=== PATIENT | female | born 1935 | race Caucasian/White ===

== ENCOUNTER → 2018-02-24 | Outpatient (CLI) | payer MEDICARE, OTHER ==
[~2018-02-24] MED LIST: AMLO5 PO; Aspir-Low81 MG PO; CHONDROITIN SU100 GM MC; CONEST.9 PO; CYAN1000 PO; ERGO400 PO; FOLI1 PO; GLUC500 PO; L-Lysine500 M1 PO; LISHYD2025 PO; Mobic15 MG PO
[2018-02-24 11:47] LABS: BASOPHILS ABSOLUTE AUTO 0.05 K/mm3 (0.00-0.23); BASOPHILS PERCENT AUTO 1 % (0-2); EOSINOPHILS ABSOLUTE AUTO 0.06 K/mm3 (0.00-0.68); EOSINOPHILS PERCENT AUTO 1 % (0-6); Hematocrit 36.7 % (33.0-51.0); Hemoglobin 11.5 g/dL (11.5-16.0); IMMATURE GRAN ABSOLUTE AUTO 0.01 K/mm3 (0.00-0.10); IMMATURE GRAN PERCENT AUTO 0 % (0-1); LYMPHOCYTES ABSOLUTE AUTO 0.66 K/mm3 (0.84-5.20); LYMPHOCYTES PERCENT AUTO 14 % (21-46); MONOCYTES ABSOLUTE AUTO 0.56 K/mm3 (0.16-1.47); MONOCYTES PERCENT AUTO 12 % (4-13); Mean Corpuscular HGB Conc 31.3 g/dL (31.5-36.5); Mean Corpuscular Volume 90 fL (80-100); Mean Platelet Volume 10.7 fL (9.1-12.4); NEUTROPHILS ABSOLUTE AUTO 3.52 K/mm3 (1.96-9.15); NEUTROPHILS PERCENT AUTO 73 % (41-73); Platelet Count 224 K/mm3 (150-400); RDW Coefficient Variation 16.3 % (11.7-14.2); RDW Standard Deviation 53.3 fL (35.1-46.3); White Blood Cell Count 4.86 K/mm3 (4.00-11.30)
[2018-02-24 11:54] LABS: Anion Gap 8 mmol/L (6-16); Blood Urea Nitrogen 17 mg/dL (8-24); Bun/Creatinine Ratio 17.3 (12.0-20.0); CO2, Blood 29 mmol/L (21-32); Calcium, Blood 8.9 mg/dL (8.5-10.1); Chloride, Blood 104 mmol/L (98-108); Creatinine, Blood 0.98 mg/dL (0.40-1.00); Glomerular Filtration Rate 54 (60-); Glucose, Blood 112 mg/dL (70-99); Potassium, Blood 3.8 mmol/L (3.5-5.5); Sodium, Blood 141 mmol/L (136-145)
[2018-02-24 12:36] LABS: Troponin I <0.015 ng/mL (0.000-0.040)
== END ==
LOC: LAB EV 11:44 → LAB SHORT 11:44
PROVIDERS: Emergency Medicine
DX: R42 Dizziness and giddiness (principal); R07.0 Pain in throat
CPT/HCPCS: 80048; 84484; 85025; 87070

== ENCOUNTER → 2018-03-22 | Outpatient (CLI) | payer MEDICARE, OTHER | END | disposition home or self-care (01) | LOC: LAB SHORT 14:29 → PLD 14:29 | DX: D48.5 Neoplasm of uncertain behavior of skin (principal) | CPT/HCPCS: 88305 ==

== ENCOUNTER 2018-06-18 05:49 | Day surgery (SDC) | payer MEDICARE, OTHER ==
[~2018-06-18] VITALS: Ht 157.5 cm; Wt 62.7 kg
[~2018-06-18 05:49] MED LIST changes: -CONEST.9 PO; -CYAN1000 PO; -ERGO400 PO; -L-Lysine500 M1 PO; -LISHYD2025 PO; +LISI20 PO; +Premarin0.3 MG PO
--- NOTE | 2018-06-18 06:44 | NUR ---
History, Chart, Medications and Allergies reviewed before start of procedure. Patient confirms NPO status and agrees with scheduled surgery. Patient states she was not instructed use shower with chlorhexidine at home.
[2018-06-18] MEDS ORDERED: DORZOLAMIDE 2%10 ML BOTHEYES (07:26)
[2018-06-18] MEDS ORDERED: CELE200 PO (07:26)
[2018-06-18] MEDS ORDERED: PANT40 PO (07:27)
[2018-06-18] MEDS ORDERED: ATOR10 PO (07:27)
[2018-06-18] MEDS ORDERED: ERYT1OIN BOTHEYES (07:28)
--- NOTE | 2018-06-18 14:24 | NUR ---
SWOLLEN TONGUE L HALF OF TONGUE IS SWOLLEN. PT ABLE TO SPEAK CLEARLY AND NO RESPIRATORY DISTRESS NOTED. STATES THIS HAS HAPPENED BEFORE WITH FOODS WITH MSG. WILL CALL KITCHEN AND DIETITIAN TO DISCUSS.
--- NOTE | 2018-06-18 19:31 | NUR ---
SHIFT SUMMARY PT HAS BEEN UP AMBULATED, HAS DENIED PAIN, SMALL AMOUNT OF VAG BLEEDING, TOLERATING DIET WELL. GOOD UO.
[2018-06-18] MEDS ORDERED: GALA4 PO (22:08)
[2018-06-18] MEDS ORDERED: CYAN500 PO (22:08)
[2018-06-18] MEDS ORDERED: L-LYSINE500 MG PO (22:08)
[2018-06-18] MEDS ORDERED: Calcium + Vita1 EACH PO (22:09)
[2018-06-18] MEDS ORDERED: RESTASIS MULTI5.5 ML BOTHEYES (22:11)
[2018-06-18] MEDS ORDERED: FISH OIL 1,2001 EACH PO (22:12)
[2018-06-18] MEDS ORDERED: VITAMIN E400 UNI1 PO (22:14)
[2018-06-19 04:53] LABS: BASOPHILS ABSOLUTE AUTO 0.02 K/mm3 (0.00-0.23); BASOPHILS PERCENT AUTO 0 % (0-2); EOSINOPHILS PERCENT AUTO 0 % (0-6); Hematocrit 31.8 % (33.0-51.0); Hemoglobin 9.9 g/dL (11.5-16.0); IMMATURE GRAN ABSOLUTE AUTO 0.04 K/mm3 (0.00-0.10); IMMATURE GRAN PERCENT AUTO 0 % (0-1); LYMPHOCYTES ABSOLUTE AUTO 1.26 K/mm3 (0.84-5.20); LYMPHOCYTES PERCENT AUTO 12 % (21-46); MONOCYTES ABSOLUTE AUTO 0.95 K/mm3 (0.16-1.47); MONOCYTES PERCENT AUTO 9 % (4-13); Mean Corpuscular HGB 28.2 pg (26.0-34.0); Mean Corpuscular HGB Conc 31.1 g/dL (31.5-36.5); Mean Corpuscular Volume 91 fL (80-100); Mean Platelet Volume 10.4 fL (9.1-12.4); NEUTROPHILS ABSOLUTE AUTO 8.56 K/mm3 (1.96-9.15); NEUTROPHILS PERCENT AUTO 79 % (41-73); Platelet Count 219 K/mm3 (150-400); RDW Coefficient Variation 14.8 % (11.7-14.2); RDW Standard Deviation 49.5 fL (35.1-46.3); Red Blood Cell Count 3.51 M/mm3 (3.80-5.20); White Blood Cell Count 10.83 K/mm3 (4.00-11.30)
--- NOTE | 2018-06-19 05:26 | NUR ---
POD 1 S/P A/P REPAIR WITH SLING. PT DID GREAT DURING NIGHT. DENIES ANY PAIN. HAS BEEN UP AMBULATING. TOLERATING PO. MIN VAG BLEEDING, PAD CHANGED JUST ONCE THIS AM. WILL DC MCCARTNEY AND MONITOR FOR VOID AND PVR. CALL LIGHT IN REACH AND WILL REPORT OFF TO NEXT SHIFT.
[2018-06-19] MEDS ORDERED: DOCU100 PO (09:06)
[2018-06-19] MEDS ORDERED: ACET325 PO (09:06)
--- NOTE | 2018-06-19 10:38 | NUR ---
DISCHARGE SUMMARY PT DISCHARGED HOME AT 1010 WITH SPOUSE. DISCHARGE TEACHING GIVEN AND PT/SPOUSE DENIED QUESTIONS OR CONCERNS. AMBULATING IND AND PAIN WELL MANAGED. ABLE TO VOID TWICE THIS MORING AND IS TOLERATING DIET.
== END 2018-06-19 10:15 | disposition home or self-care (01) ==
LOC: ORSCMMR 05:49 → ORD 07:30 → ORSCMMR 07:30 → SURS 09:53 → ORSCMMR 06-19 10:15
PROVIDERS: Obstetrics & Gynecology
PROC: 0JQC0ZZ Repair Pelvic Region Subcutaneous Tissue and Fascia, Open Approach (ICD-10-PCS; principal; 2018-06-19)
PROC: 0UQF0ZZ Repair Cul-de-sac, Open Approach (ICD-10-PCS; principal; 2018-06-19)
PROC: 0TSD0ZZ Reposition Urethra, Open Approach (ICD-10-PCS; principal; 2018-06-19)
DX: N81.11 Cystocele, midline (principal); N81.6 Rectocele; N39.3 Stress incontinence (female) (male); Z79.82 Long term (current) use of aspirin; Z79.899 Other long term (current) drug therapy; I10 Essential (primary) hypertension; E78.5 Hyperlipidemia, unspecified
CPT/HCPCS: 36415; 85025; C1771; J0690; J1100; J1885; J2405; J2704; J3010; J7120; Q0163

== ENCOUNTER → 2018-08-29 | Outpatient (CLI) | payer MEDICARE, OTHER ==
[~2018-08-29] MED LIST changes: +ACET325 PO; +ATOR10 PO; +CELE200 PO; +CYAN500 PO; +Calcium + Vita1 EACH PO; +DOCU100 PO; +DORZOLAMIDE 2%10 ML BOTHEYES; +ERYT1OIN BOTHEYES; +FISH OIL 1,2001 EACH PO; +GALA4 PO; +L-LYSINE500 MG PO; +PANT40 PO; +RESTASIS MULTI5.5 ML BOTHEYES; +VITAMIN E400 UNI1 PO
== END | disposition home or self-care (01) ==
LOC: LAB EV 15:50 → LAB SHORT 15:50
DX: N39.3 Stress incontinence (female) (male) (principal)
CPT/HCPCS: 87086

== ENCOUNTER → 2018-08-31 | Outpatient (CLI) | payer MEDICARE, OTHER ==
[2018-08-31 14:12] LABS: Stool Occult Bld Immuno 1 Negative (NEGATIVE)
== END | disposition home or self-care (01) ==
LOC: LAB SHORT 10:15 → LAB 10:15
PROVIDERS: Internal Medicine
DX: D53.9 Nutritional anemia, unspecified (principal); I10 Essential (primary) hypertension; R27.0 Ataxia, unspecified
CPT/HCPCS: 82274

== ENCOUNTER → 2019-11-18 | Outpatient (CLI) | payer MEDICARE, OTHER | END | disposition home or self-care (01) | LOC: LAB SHORT 14:14 → PLD 14:14 | DX: D48.5 Neoplasm of uncertain behavior of skin (principal) | CPT/HCPCS: 88305 ==

== ENCOUNTER → 2019-12-19 | Outpatient (CLI) | payer MEDICARE, OTHER ==
[2019-12-20 15:45] LABS: CORONAVIRUS (COVID19) CSH-NRL Negative (Negative)
== END | disposition home or self-care (01) ==
LOC: LAB SHORT 11:39
PROVIDERS: Internal Medicine
DX: Z20.828 Contact with and (suspected) exposure to other viral communicable diseases (principal)
CPT/HCPCS: U0003

== ENCOUNTER → 2020-12-17 | Outpatient (CLI) | payer MEDICARE, OTHER | LOC: LAB 17:52 → LAB SHORT 17:52 | DX: N81.9 Female genital prolapse, unspecified (principal) | CPT/HCPCS: 87086 ==

== ENCOUNTER → 2021-11-11 | Outpatient (CLI) | payer MEDICARE, OTHER | END | disposition home or self-care (01) | LOC: LAB 07:39 → LAB SHORT 07:39 | DX: Q18.1 Preauricular sinus and cyst (principal) | CPT/HCPCS: 88304 ==

== ENCOUNTER → 2021-12-07 | Outpatient (CLI) | payer MEDICARE, OTHER ==
[2021-12-08 09:32] LABS: Stool Occult Bld Immuno 1 Positive (NEGATIVE)
== END ==
LOC: LAB SHORT 19:20 → LAB 19:20
PROVIDERS: Internal Medicine
DX: R10.13 Epigastric pain (principal)
CPT/HCPCS: 82274

== ENCOUNTER 2022-07-13 11:24 | Day surgery (SDC) | payer MEDICARE, OTHER ==
[~2022-07-13] VITALS: Ht 157.5 cm; Wt 60.4 kg
[2022-07-13] MEDS ORDERED: HYDCHL12.5 (12:50)
[2022-07-13] MEDS ORDERED: SIME80CH (12:50)
[2022-07-13] MEDS ORDERED: FAMO20 (12:50)
[2022-07-13] MEDS ORDERED: Premarin0.3 MG (12:50)
[2022-07-13 15:27] VITALS: BP 167/72
== END 2022-07-13 15:10 | disposition home or self-care (01) ==
LOC: ORSCSDS 11:24
PROVIDERS: Internal Medicine Gastroenterology
PROC: 0DB98ZX Excision of Duodenum, Via Natural or Artificial Opening Endoscopic, Diagnostic (ICD-10-PCS; principal; 2022-07-13 13:00)
PROC: 0DB68ZX Excision of Stomach, Via Natural or Artificial Opening Endoscopic, Diagnostic (ICD-10-PCS; principal; 2022-07-13 13:00)
DX: R10.13 Epigastric pain (principal); K29.70 Gastritis, unspecified, without bleeding; I10 Essential (primary) hypertension; K44.9 Diaphragmatic hernia without obstruction or gangrene; Z87.891 Personal history of nicotine dependence; Z79.82 Long term (current) use of aspirin; Z79.899 Other long term (current) drug therapy
CPT/HCPCS: 88305; 88342; J2001; J2704; J7120

== ENCOUNTER 2022-10-12 23:06 | Emergency (ER) | payer MEDICARE, OTHER ==
[~2022-10-12] VITALS: Ht 157.5 cm; Wt 59.0 kg
[~2022-10-12 23:06] MED LIST changes: +FAMO20; +HYDCHL12.5; +Premarin0.3 MG; +SIME80CH
[2022-10-13 00:10] LABS: BASOPHILS ABSOLUTE AUTO 0.02 K/mm3 (0.00-0.23); BASOPHILS PERCENT AUTO 1 % (0-2); EOSINOPHILS ABSOLUTE AUTO 0.02 K/mm3 (0.00-0.68); EOSINOPHILS PERCENT AUTO 1 % (0-6); Hemoglobin 11.5 g/dL (11.5-16.0); IMMATURE GRAN ABSOLUTE AUTO 0.01 K/mm3 (0.00-0.10); IMMATURE GRAN PERCENT AUTO 0 % (0-1); LYMPHOCYTES ABSOLUTE AUTO 0.29 K/mm3 (0.84-5.20); LYMPHOCYTES PERCENT AUTO 7 % (21-46); MONOCYTES ABSOLUTE AUTO 0.47 K/mm3 (0.16-1.47); MONOCYTES PERCENT AUTO 11 % (4-13); Mean Corpuscular HGB 33.2 pg (26.0-34.0); Mean Corpuscular HGB Conc 33.8 g/dL (31.5-36.5); Mean Corpuscular Volume 98 fL (80-100); NEUTROPHILS ABSOLUTE AUTO 3.43 K/mm3 (1.96-9.15); NEUTROPHILS PERCENT AUTO 81 % (41-73); Platelet Count 151 K/mm3 (150-400); RDW Coefficient Variation 12.7 % (11.7-14.2); RDW Standard Deviation 45.2 fL (35.1-46.3); Red Blood Cell Count 3.46 M/mm3 (3.80-5.20); White Blood Cell Count 4.24 K/mm3 (4.00-11.30)
[2022-10-13 00:37] LABS: Albumin, Blood 2.9 g/dL (3.4-5.0); Bilirubin, Total 0.3 mg/dL (0.1-1.0); Bun/Creatinine Ratio 22.5 (12.0-20.0); Calcium, Blood 8.2 mg/dL (8.5-10.1); Creatinine, Blood 0.76 mg/dL (0.40-1.00); Magnesium, Blood 1.5 mg/dL (1.6-2.4); Phosphorus, Blood 1.9 mg/dL (2.5-4.9); Potassium, Blood 3.3 mmol/L (3.5-5.5); Thyroid Stimulating Hormone 0.466 uIU/mL (0.360-4.800); Total Protein, Blood 5.9 g/dL (6.4-8.2)
[2022-10-13 02:04] VITALS: BP 140/68
[2022-10-13] MEDS ORDERED: Ibuprofen600 MG PO (02:05)
[2022-10-13] MEDS ORDERED: ACET500 PO (02:05)
== END 2022-10-13 02:17 | disposition home or self-care (01) ==
LOC: ER 23:06
PROVIDERS: Emergency Medicine
DX: U07.1 COVID-19 (principal); I10 Essential (primary) hypertension; Z88.8 Allergy status to other drugs, medicaments and biological substances; Z79.899 Other long term (current) drug therapy; Z79.82 Long term (current) use of aspirin
CPT/HCPCS: 70450; 71045; 80053; 83735; 84100; 84443; 85025; 93005; 93010; 96361; 96374; 96375; 99285-25; A9270; J1100; J1885; J7030

== ENCOUNTER 2023-04-07 11:25 | Emergency (ER) | payer MEDICARE, OTHER ==
[~2023-04-07] VITALS: Ht 157.5 cm; Wt 60.3 kg
[~2023-04-07 11:25] MED LIST changes: +ACET500 PO; +Ibuprofen600 MG PO
[2023-04-07 12:53] LABS: BASOPHILS ABSOLUTE AUTO 0.02 K/mm3 (0.00-0.23); BASOPHILS PERCENT AUTO 0 % (0-2); EOSINOPHILS PERCENT AUTO 0 % (0-6); Hematocrit 42.9 % (33.0-51.0); Hemoglobin 14.2 g/dL (11.5-16.0); IMMATURE GRAN ABSOLUTE AUTO 0.02 K/mm3 (0.00-0.10); IMMATURE GRAN PERCENT AUTO 0 % (0-1); LYMPHOCYTES ABSOLUTE AUTO 0.61 K/mm3 (0.84-5.20); LYMPHOCYTES PERCENT AUTO 8 % (21-46); MONOCYTES ABSOLUTE AUTO 0.25 K/mm3 (0.16-1.47); MONOCYTES PERCENT AUTO 3 % (4-13); Mean Corpuscular HGB 32.6 pg (26.0-34.0); Mean Corpuscular HGB Conc 33.1 g/dL (31.5-36.5); Mean Corpuscular Volume 98 fL (80-100); Mean Platelet Volume 10.7 fL (9.1-12.4); NEUTROPHILS ABSOLUTE AUTO 6.71 K/mm3 (1.96-9.15); NEUTROPHILS PERCENT AUTO 88 % (41-73); Platelet Count 196 K/mm3 (150-400); RDW Coefficient Variation 12.6 % (11.7-14.2); RDW Standard Deviation 45.5 fL (35.1-46.3); Red Blood Cell Count 4.36 M/mm3 (3.80-5.20); White Blood Cell Count 7.61 K/mm3 (4.00-11.30)
[2023-04-07 13:46] LABS: Albumin/Globulin Ratio 1.2 (0.8-1.8); Bilirubin, Total 0.6 mg/dL (0.1-1.0); Calcium, Blood 9.4 mg/dL (8.5-10.1); Creatinine, Blood 0.57 mg/dL (0.40-1.00); Globulin, Blood 3.4 g/dL (2.2-4.0); Potassium, Blood 3.6 mmol/L (3.5-5.5); Total Protein, Blood 7.4 g/dL (6.4-8.2)
[2023-04-07] MEDS ORDERED: Ondansetron HCl 2 MG / ML 2ML Vial IV ONE (15:25)
[2023-04-07] MEDS ORDERED: Meclizine HCl 25 MG Tab PO ONE (15:40)
[2023-04-07] MEDS ORDERED: Promethazine HCl 25 MG Tab PO ONE (16:25)
[2023-04-07] MEDS ORDERED: NS 500 ML IV SCH (18:05)
[2023-04-07 18:22] VITALS: BP 177/80
[2023-04-07] MEDS ORDERED: MECL25 PO (19:18)
[2023-04-07] MEDS ORDERED: PROM25 PO (19:18)
[2023-04-07] MEDS ORDERED: RX Prepack 2 Tabs Ondansetron ODT 4MG UD ONE (19:30)
== END 2023-04-07 19:42 | disposition home or self-care (01) ==
LOC: ER 11:25
PROVIDERS: Physician Assistant
DX: R42 Dizziness and giddiness (principal); R11.2 Nausea with vomiting, unspecified; I10 Essential (primary) hypertension; Z88.8 Allergy status to other drugs, medicaments and biological substances; Z79.899 Other long term (current) drug therapy; Z79.82 Long term (current) use of aspirin
CPT/HCPCS: 70496; 70498; 80053; 84484; 85025; A9270; J2405; J7030; Q9967